=== PATIENT | male | born 1990 | race African-American/Black ===

== ENCOUNTER 2017-08-25 09:14 | Inpatient (IN) | payer OTHER ==
[~2017-08-25] VITALS: Ht 193 cm; Wt 137.7 kg
[2017-08-25] MEDS ORDERED: ARIP2 PO (09:55)
[2017-08-25 10:14] LABS: HEMATOCRIT 45.8 % (41-53); HEMOGLOBIN 16.1 g/dL (13.5-17.5); MEAN CORPUSCULAR HEMOGLOBIN 31.3 pg (26.0-34.0); MEAN CORPUSCULAR HGB CONC 35.2 G/dL (31.0-37.0); MEAN CORPUSCULAR VOLUME 89 fL (80-100); PLATELET COUNT (AUTO) 188 K/uL (150-450); RED BLOOD CELL COUNT(AUTO) 5.15 MIL/uL (4.50-5.90); RED CELL DISTRIBUTION WIDTH 13.9 % (11.5-14.5)
[2017-08-25 10:16] LABS: BAND NEUTROPHILS % (MANUAL) 0 % (0-5)
[2017-08-25 10:24] LABS: ANION GAP 10 mmol/L (8-16); CALCIUM, TOTAL 8.9 mg/dL (8.8-10.5); CARBON DIOXIDE 28 mmol/L (22-29); CHLORIDE 101 mmol/L (98-107); GLOMERULAR FILTR. RATE CALC > 60 mL/min (>60); GLUCOSE,RANDOM 122 mg/dL (70-110); POTASSIUM 3.3 mmol/L (3.5-5.1); SODIUM SERUM 139 mmol/L (136-145); UREA NITROGEN, BLOOD 18 mg/dL (7-18)
[2017-08-25 10:31] LABS: ALANINE AMINOTRANSFERASE 676 U/L (12-78); ALBUMIN 3.9 g/dL (3.4-5.0); ALKALINE PHOSPHATASE 103 U/L (46-116); ASPARTATE AMINOTRANSFERASE 438 U/L (15-37); BILIRUBIN,TOTAL 2.7 mg/dL (0.1-1.0); TOTAL PROTEIN, SERUM 7.7 g/dL (6.4-8.2)
[2017-08-25 10:38] LABS: SALICYLATE < 2.8 mg/dL (2.8-20.0)
[2017-08-25 10:47] LABS: ACETAMINOPHEN 105 mcg/mL (10-30)
[2017-08-25] MEDS ORDERED: ACETYLCYSTEINE 20% 200 MG/ML 30 ML ORAL SOLUTION PO ONE (11:00)
[2017-08-25] MEDS ORDERED: SODIUM CHLORIDE 0.9% 1,000 ML IV ONE (11:00)
[2017-08-25 11:17] LABS: INR 1.3 (0.9-1.1); PROTHROMBIN TIME 13.4 SEC (9.4-11.6)
[2017-08-25 11:21] LABS: SALICYLATE < 2.0 mg/dL (2.8-20.0)
[2017-08-25 11:26] LABS: ACETAMINOPHEN 104 mcg/mL (10-30)
[2017-08-25] MEDS ORDERED: POTASSIUM CHLORIDE 20 MEQ ER TABLET PO ONE (11:30)
[2017-08-25] MEDS ORDERED: ONDANSETRON HCL 4 MG/2 ML VIAL IVP ONE (11:30)
[2017-08-25 11:32] LABS: AMPHET/METH SCREEN,URINE POSITIVE (NEGATIVE); BARBITURATE SCREEN, URINE NEGATIVE (NEGATIVE); BENZODIAZEPINES SCREEN,URINE NEGATIVE (NEGATIVE); CANNABINOID SCREEN,URINE POSITIVE (NEGATIVE); COCAINE SCREEN,URINE NEGATIVE (NEGATIVE); METHADONE SCREEN, URINE NEGATIVE (NEGATIVE); OPIATE SCREEN,URINE NEGATIVE (NEGATIVE)
[2017-08-25 11:34] LABS: LYMPHOCYTES % (MANUAL) 13 % (22-44); MONOCYTES % (MANUAL) 2 % (2-9); SEGMENTED NEUTROPHILS % 85 % (40-70)
[2017-08-25 11:37] LABS: PHENCYCLIDINE SCREEN,URINE NEGATIVE (NEGATIVE)
[2017-08-25] MEDS ORDERED: MAGNESIUM HYDROXIDE SUSPENSION 30 ML UDCUP PO PRN (12:15)
[2017-08-25] MEDS ORDERED: 0.9% SODIUM CHLORIDE 10 ML SYRINGE IVP PRN (12:30)
[2017-08-25] MEDS ORDERED: ONDANSETRON HCL 4 MG/2 ML VIAL IVP PRN (12:30)
[2017-08-25] MEDS ORDERED: ACETAMINOPHEN 325 MG TABLET PO PRN (12:30)
[2017-08-25 14:22] VITALS: BP 140/66
[2017-08-25 14:44] VITALS: BP 140/66
[2017-08-25 20:04] VITALS: BP 137/58
[2017-08-25] MEDS: DOCUSATE SODIUM 100 MG CAPSULE PO SCH (21:00)
[2017-08-26] VITALS (8 sets, daily range): BP systolic 110–139; BP diastolic 45–72
[2017-08-26] MEDS: DOCUSATE SODIUM 100 MG CAPSULE PO SCH ×2 (09:00→20:12)
[2017-08-26] MEDS ORDERED: PANTOPRAZOLE SODIUM 40 MG DR TABLET PO SCH (09:00)
[2017-08-26 09:11] LABS: INR 1.8 (0.9-1.1); PROTHROMBIN TIME 18.8 SEC (9.4-11.6)
[2017-08-26 09:56] LABS: ALKALINE PHOSPHATASE 107 U/L (46-116); ANION GAP 9 mmol/L (8-16); BILIRUBIN,TOTAL 1.9 mg/dL (0.1-1.0); CARBON DIOXIDE 25 mmol/L (22-29); CHLORIDE 103 mmol/L (98-107); CREATININE 1.08 mg/dL (0.60-1.30); GLOMERULAR FILTR. RATE CALC > 60 mL/min (>60); GLUCOSE,RANDOM 123 mg/dL (70-110); POTASSIUM 3.4 mmol/L (3.5-5.1); SODIUM SERUM 137 mmol/L (136-145); TOTAL PROTEIN, SERUM 6.4 g/dL (6.4-8.2); UREA NITROGEN, BLOOD 15 mg/dL (7-18)
[2017-08-26] MEDS ORDERED: DEXTROSE 5% IV ONE ×3 (10:30→15:30)
[2017-08-26] MEDS ORDERED: POTASSIUM CHL 10 MEQ/WATER 50 ML IV PRN (10:30)
[2017-08-26] MEDS ORDERED: ACETYLCYSTEINE IV ONE ×3 (10:30→15:30)
[2017-08-26] MEDS ORDERED: WATER IV ONE ×3 (10:30→15:30)
[2017-08-26] MEDS: PANTOPRAZOLE SODIUM 40 MG/VIAL IVP SCH (10:38)
[2017-08-26 10:53] LABS: ALANINE AMINOTRANSFERASE 12061 U/L (12-78); ASPARTATE AMINOTRANSFERASE 8847 U/L (15-37)
[2017-08-26] MEDS: ONDANSETRON HCL 4 MG/2 ML VIAL IVP PRN ×2 (11:33→14:47)
[2017-08-26] MEDS ORDERED: SODIUM CHLORIDE 0.9% 250 ML IV ONE ×2 (11:50→14:44)
[2017-08-26] MEDS ORDERED: LACTULOSE 20 GM/30 ML SOLUTION UDCUP PO PRN (12:45)
[2017-08-26] MEDS: POTASSIUM CHLORIDE 20 MEQ ER TABLET PO PRN (14:51)
[2017-08-26 17:40] LABS: ANION GAP 7 mmol/L (8-16); CALCIUM, TOTAL 8.1 mg/dL (8.8-10.5); CARBON DIOXIDE 28 mmol/L (22-29); CHLORIDE 102 mmol/L (98-107); CREATININE 1.12 mg/dL (0.60-1.30); GLOMERULAR FILTR. RATE CALC > 60 mL/min (>60); GLUCOSE,RANDOM 139 mg/dL (70-110); POTASSIUM 3.6 mmol/L (3.5-5.1); SODIUM SERUM 137 mmol/L (136-145); UREA NITROGEN, BLOOD 13 mg/dL (7-18)
[2017-08-26 17:42] LABS: INR 1.7 (0.9-1.1); PROTHROMBIN TIME 17.5 SEC (9.4-11.6)
[2017-08-26 17:51] LABS: ACETAMINOPHEN 10 mcg/mL (10-30); ALBUMIN 2.9 g/dL (3.4-5.0); ALKALINE PHOSPHATASE 102 U/L (46-116); BILIRUBIN,TOTAL 1.7 mg/dL (0.1-1.0); PHOSPHORUS 1.7 mg/dL (2.5-4.9); TOTAL PROTEIN, SERUM 6.4 g/dL (6.4-8.2)
[2017-08-26 18:09] LABS: ASPARTATE AMINOTRANSFERASE 7552 U/L (15-37)
[2017-08-26 18:32] LABS: ALANINE AMINOTRANSFERASE 12234 U/L (12-78)
[2017-08-26] MEDS: POTASSIUM PHOS/SODIUM PHOS MIXTURE 1 POWDER PACKET PO SCH (20:12)
[2017-08-27] VITALS (7 sets, daily range): BP systolic 108–132; BP diastolic 47–73
[2017-08-27 05:38] LABS: BASOPHILS % (AUTO) 0.3 % (0.0-2.0); EOSINOPHILS % (AUTO) 0.5 % (1.0-6.0); HEMATOCRIT 39.6 % (41-53); LYMPHOCYTES # (AUTO) 1.3 K/uL (1.0-4.8); LYMPHOCYTES % (AUTO) 20.4 % (22.0-44.0); MEAN CORPUSCULAR HEMOGLOBIN 30.5 pg (26.0-34.0); MEAN CORPUSCULAR HGB CONC 35.3 G/dL (31.0-37.0); MEAN CORPUSCULAR VOLUME 87 fL (80-100); MONOCYTES # (AUTO) 0.3 K/uL (0.1-1.0); MONOCYTES % (AUTO) 4.3 % (2.0-9.0); NEUTROPHILS # (AUTO) 4.8 K/uL (1.8-7.7); NEUTROPHILS % (AUTO) 74.5 % (40.0-70.0); PLATELET COUNT (AUTO) 114 K/uL (150-450); RED BLOOD CELL COUNT(AUTO) 4.57 MIL/uL (4.50-5.90); RED CELL DISTRIBUTION WIDTH 13.5 % (11.5-14.5)
[2017-08-27 05:48] LABS: INR 1.6 (0.9-1.1); PROTHROMBIN TIME 16.1 SEC (9.4-11.6)
[2017-08-27 06:06] LABS: ALBUMIN 2.8 g/dL (3.4-5.0); ALKALINE PHOSPHATASE 102 U/L (46-116); ANION GAP 7 mmol/L (8-16); BILIRUBIN,TOTAL 1.5 mg/dL (0.1-1.0); CARBON DIOXIDE 28 mmol/L (22-29); CHLORIDE 102 mmol/L (98-107); CREATININE 1.04 mg/dL (0.60-1.30); GLOMERULAR FILTR. RATE CALC > 60 mL/min (>60); GLUCOSE,RANDOM 106 mg/dL (70-110); PHOSPHORUS 1.9 mg/dL (2.5-4.9); POTASSIUM 3.1 mmol/L (3.5-5.1); SODIUM SERUM 137 mmol/L (136-145); UREA NITROGEN, BLOOD 10 mg/dL (7-18)
[2017-08-27 06:53] LABS: ALANINE AMINOTRANSFERASE 9078 U/L (12-78); ASPARTATE AMINOTRANSFERASE 3726 U/L (15-37)
[2017-08-27] MEDS ORDERED: RAPID SEQUENCE KIT [RSI] 1 EACH KIT ONE (08:49)
[2017-08-27] MEDS: POTASSIUM CHLORIDE 20 MEQ ER TABLET PO PRN ×2 (09:01→14:03)
[2017-08-27] MEDS: DOCUSATE SODIUM 100 MG CAPSULE PO SCH ×2 (09:01→21:22)
[2017-08-27] MEDS: POTASSIUM PHOS/SODIUM PHOS MIXTURE 1 POWDER PACKET PO SCH ×2 (09:03→21:22)
[2017-08-27] MEDS: PANTOPRAZOLE SODIUM 40 MG/VIAL IVP SCH (09:05)
[2017-08-27] MEDS ORDERED: ACETYLCYSTEINE IV ONE (11:00)
[2017-08-27] MEDS ORDERED: DEXTROSE 5% IV ONE (11:00)
[2017-08-27] MEDS ORDERED: WATER IV ONE (11:00)
[2017-08-28 00:13] VITALS: BP 111/50
[2017-08-28 03:13] LABS: ALBUMIN 2.6 g/dL (3.4-5.0); BILIRUBIN,TOTAL 0.9 mg/dL (0.1-1.0); TOTAL PROTEIN, SERUM 5.8 g/dL (6.4-8.2)
[2017-08-28 03:16] LABS: BILIRUBIN,DIRECT 0.4 mg/dL (0.00-0.20)
[2017-08-28] MEDS ORDERED: DEXTROSE 5% IV ONE (04:30)
[2017-08-28] MEDS ORDERED: WATER IV ONE (04:30)
[2017-08-28] MEDS ORDERED: ACETYLCYSTEINE IV ONE (04:30)
[2017-08-28 04:49] VITALS: BP 131/73
[2017-08-28 06:48] LABS: ALBUMIN 2.6 g/dL (3.4-5.0); ALKALINE PHOSPHATASE 94 U/L (46-116); ANION GAP 6 mmol/L (8-16); ASPARTATE AMINOTRANSFERASE 820 U/L (15-37); BILIRUBIN,TOTAL 0.9 mg/dL (0.1-1.0); CALCIUM, TOTAL 7.9 mg/dL (8.8-10.5); CARBON DIOXIDE 28 mmol/L (22-29); CHLORIDE 104 mmol/L (98-107); CREATININE 1.25 mg/dL (0.60-1.30); GLOMERULAR FILTR. RATE CALC > 60 mL/min (>60); GLUCOSE,RANDOM 119 mg/dL (70-110); PHOSPHORUS 1.9 mg/dL (2.5-4.9); POTASSIUM 3.6 mmol/L (3.5-5.1); SODIUM SERUM 138 mmol/L (136-145); TOTAL PROTEIN, SERUM 5.8 g/dL (6.4-8.2); UREA NITROGEN, BLOOD 14 mg/dL (7-18)
[2017-08-28 06:56] LABS: INR 1.2 (0.9-1.1); PROTHROMBIN TIME 12.7 SEC (9.4-11.6)
[2017-08-28 07:25] VITALS: BP 119/65
[2017-08-28 07:51] LABS: ALANINE AMINOTRANSFERASE 5642 U/L (12-78)
[2017-08-28] MEDS: DOCUSATE SODIUM 100 MG CAPSULE PO SCH ×2 (08:30→20:59)
[2017-08-28] MEDS: POTASSIUM PHOS/SODIUM PHOS MIXTURE 1 POWDER PACKET PO SCH ×2 (08:30→21:20)
[2017-08-28] MEDS: PANTOPRAZOLE SODIUM 40 MG/VIAL IVP SCH (08:30)
[2017-08-28 11:47] VITALS: BP 116/59
[2017-08-28 15:33] VITALS: BP 118/73
[2017-08-28 19:51] VITALS: BP 139/88
[2017-08-28 21:12] LABS: ALBUMIN 2.7 g/dL (3.4-5.0); BILIRUBIN,TOTAL 0.5 mg/dL (0.1-1.0)
[2017-08-28 21:13] LABS: BILIRUBIN,DIRECT 0.3 mg/dL (0.00-0.20)
[2017-08-29] VITALS: BP 137/77
[2017-08-29 06:47] LABS: ALANINE AMINOTRANSFERASE 3192 U/L (12-78); ALBUMIN 2.7 g/dL (3.4-5.0); ALKALINE PHOSPHATASE 97 U/L (46-116); ANION GAP 7 mmol/L (8-16); ASPARTATE AMINOTRANSFERASE 235 U/L (15-37); BILIRUBIN,TOTAL 0.5 mg/dL (0.1-1.0); CALCIUM, TOTAL 7.8 mg/dL (8.8-10.5); CARBON DIOXIDE 28 mmol/L (22-29); CHLORIDE 105 mmol/L (98-107); CREATININE 1.35 mg/dL (0.60-1.30); GLOMERULAR FILTR. RATE CALC > 60 mL/min (>60); GLUCOSE,RANDOM 87 mg/dL (70-110); POTASSIUM 3.9 mmol/L (3.5-5.1); SODIUM SERUM 140 mmol/L (136-145); TOTAL PROTEIN, SERUM 5.9 g/dL (6.4-8.2); UREA NITROGEN, BLOOD 15 mg/dL (7-18)
[2017-08-29] MEDS ORDERED: SODIUM CHLORIDE 0.9% 500 ML IV ONE (07:35)
[2017-08-29 07:56] VITALS: BP 130/76
[2017-08-29] MEDS: PANTOPRAZOLE SODIUM 40 MG/VIAL IVP SCH (09:20)
[2017-08-29] MEDS: POTASSIUM PHOS/SODIUM PHOS MIXTURE 1 POWDER PACKET PO SCH ×2 (09:20→20:34)
[2017-08-29] MEDS: DOCUSATE SODIUM 100 MG CAPSULE PO SCH ×2 (09:20→20:34)
[2017-08-29 11:44] VITALS: BP_SYST 130; BP_SYST 139; BP_DIAS 70; BP_DIAS 75
[2017-08-29 17:01] VITALS: BP 157/86
[2017-08-29 20:00] VITALS: BP 128/73
[2017-08-29 23:25] VITALS: BP 127/59
[2017-08-30 05:10] VITALS: BP 118/69
[2017-08-30 07:55] LABS: ALANINE AMINOTRANSFERASE 2119 U/L (12-78); ALBUMIN 2.8 g/dL (3.4-5.0); ALKALINE PHOSPHATASE 85 U/L (46-116); ANION GAP 6 mmol/L (8-16); ASPARTATE AMINOTRANSFERASE 97 U/L (15-37); BILIRUBIN,TOTAL 0.6 mg/dL (0.1-1.0); CALCIUM, TOTAL 8.1 mg/dL (8.8-10.5); CARBON DIOXIDE 30 mmol/L (22-29); CHLORIDE 103 mmol/L (98-107); CREATININE 1.51 mg/dL (0.60-1.30); GLOMERULAR FILTR. RATE CALC > 60 mL/min (>60); GLUCOSE,RANDOM 88 mg/dL (70-110); POTASSIUM 4.1 mmol/L (3.5-5.1); SODIUM SERUM 139 mmol/L (136-145); TOTAL PROTEIN, SERUM 6.1 g/dL (6.4-8.2); UREA NITROGEN, BLOOD 19 mg/dL (7-18)
[2017-08-30] MEDS ORDERED: SODIUM CHLORIDE 0.9% 1,000 ML IV ONE (08:45)
[2017-08-30 08:46] VITALS: BP 135/82
[2017-08-30] MEDS: DOCUSATE SODIUM 100 MG CAPSULE PO SCH ×2 (09:21→22:18)
[2017-08-30] MEDS: ONDANSETRON HCL 4 MG/2 ML VIAL IVP PRN ×2 (09:21→15:59)
[2017-08-30 11:53] VITALS: BP 132/70
[2017-08-30 19:30] VITALS: BP 128/74
[2017-08-30] MEDS ORDERED: MIRTAZAPINE 15 MG TABLET PO SCH (21:00)
[2017-08-30] MEDS: SERTRALINE HCL 50 MG TABLET PO SCH (22:18)
[2017-08-30 23:15] VITALS: BP 132/76
[2017-08-31 04:00] VITALS: BP 136/74
[2017-08-31 06:59] LABS: ALANINE AMINOTRANSFERASE 1521 U/L (12-78); ALBUMIN 2.9 g/dL (3.4-5.0); ALKALINE PHOSPHATASE 89 U/L (46-116); ANION GAP 5 mmol/L (8-16); ASPARTATE AMINOTRANSFERASE 55 U/L (15-37); BILIRUBIN,TOTAL 0.5 mg/dL (0.1-1.0); CALCIUM, TOTAL 8.3 mg/dL (8.8-10.5); CARBON DIOXIDE 31 mmol/L (22-29); CHLORIDE 104 mmol/L (98-107); GLOMERULAR FILTR. RATE CALC > 60 mL/min (>60); GLUCOSE,RANDOM 98 mg/dL (70-110); POTASSIUM 4.2 mmol/L (3.5-5.1); SODIUM SERUM 140 mmol/L (136-145); TOTAL PROTEIN, SERUM 6.4 g/dL (6.4-8.2); UREA NITROGEN, BLOOD 19 mg/dL (7-18)
[2017-08-31 07:38] VITALS: BP 123/75
[2017-08-31] MEDS: ONDANSETRON HCL 4 MG/2 ML VIAL IVP PRN (08:30)
[2017-08-31] MEDS: ARIPiprazole 5 MG TABLET PO SCH (08:48)
[2017-08-31] MEDS: DOCUSATE SODIUM 100 MG CAPSULE PO SCH ×2 (08:48→19:53)
[2017-08-31] MEDS ORDERED: SODIUM CHLORIDE 0.9% 1,000 ML IV ONE (10:15)
[2017-08-31 11:44] VITALS: BP 136/75
[2017-08-31 15:47] VITALS: BP 127/62
[2017-08-31 19:46] VITALS: BP 120/55
[2017-08-31] MEDS: SERTRALINE HCL 50 MG TABLET PO SCH (23:42)
[2017-08-31 23:45] VITALS: BP 128/59
[2017-09-01 04:45] VITALS: BP 121/63
[2017-09-01 06:30] LABS: ALANINE AMINOTRANSFERASE 1171 U/L (12-78); ALBUMIN 3.1 g/dL (3.4-5.0); ALKALINE PHOSPHATASE 91 U/L (46-116); ANION GAP 5 mmol/L (8-16); ASPARTATE AMINOTRANSFERASE 38 U/L (15-37); BILIRUBIN,TOTAL 0.5 mg/dL (0.1-1.0); CALCIUM, TOTAL 8.5 mg/dL (8.8-10.5); CARBON DIOXIDE 32 mmol/L (22-29); CHLORIDE 104 mmol/L (98-107); CREATININE 1.41 mg/dL (0.60-1.30); GLOMERULAR FILTR. RATE CALC > 60 mL/min (>60); GLUCOSE,RANDOM 88 mg/dL (70-110); POTASSIUM 4.2 mmol/L (3.5-5.1); SODIUM SERUM 141 mmol/L (136-145); TOTAL PROTEIN, SERUM 6.8 g/dL (6.4-8.2); UREA NITROGEN, BLOOD 14 mg/dL (7-18)
[2017-09-01] MEDS ORDERED: SODIUM CHLORIDE 0.9% 1,000 ML IV ONE (08:15)
[2017-09-01 08:37] VITALS: BP 126/66
[2017-09-01] MEDS: DOCUSATE SODIUM 100 MG CAPSULE PO SCH ×2 (09:00→10:26)
[2017-09-01] MEDS: ONDANSETRON HCL 4 MG/2 ML VIAL IVP PRN (10:21)
[2017-09-01] MEDS: ARIPiprazole 5 MG TABLET PO SCH (10:26)
[2017-09-01 11:58] VITALS: BP 128/72
[2017-09-01] MEDS ORDERED: LACT10SO9 PO (14:27)
[2017-09-01] MEDS ORDERED: MOM30 PO (14:27)
[2017-09-01] MEDS ORDERED: ARIP5TAB8 PO (14:27)
[2017-09-01] MEDS ORDERED: ONDA4 PO (14:27)
[2017-09-01] MEDS ORDERED: DSS100 PO (14:27)
[2017-09-01] MEDS ORDERED: SERT50TA12 PO (14:27)
[2017-09-01 16:40] VITALS: BP 132/80
== END 2017-09-01 16:50 | disposition home or self-care (01) | DRG 812 ==
LOC: EMS 09:19 → 5S 13:10 → ICU 08-26 13:49 → 5S 08-27 10:40 → 6N 08-28 18:45
PROVIDERS: ADMIT Internal Medicine; ATTEND Internal Medicine
DX: T39.1X2A Poisoning by 4-Aminophenol derivatives, intentional self-harm, initial encounter (principal); K72.00 Acute and subacute hepatic failure without coma; N17.9 Acute kidney failure, unspecified; E44.0 Moderate protein-calorie malnutrition; D68.9 Coagulation defect, unspecified; F41.9 Anxiety disorder, unspecified; F32.9 Major depressive disorder, single episode, unspecified; D69.6 Thrombocytopenia, unspecified; F60.3 Borderline personality disorder; F25.0 Schizoaffective disorder, bipolar type; F19.90 Other psychoactive substance use, unspecified, uncomplicated; F15.10 Other stimulant abuse, uncomplicated; E66.9 Obesity, unspecified; F12.10 Cannabis abuse, uncomplicated; F17.210 Nicotine dependence, cigarettes, uncomplicated; Z91.19 Patient's noncompliance with other medical treatment and regimen; Z79.899 Other long term (current) drug therapy; Z59.0 Homelessness; Z91.5 Personal history of self-harm; Z81.8 Family history of other mental and behavioral disorders; Z68.37 Body mass index [BMI] 37.0-37.9, adult
CPT/HCPCS: 82248; 84100; 84132; 87081; 93005; 99285; C9113; G0480; G0481; J0132; J2405; J3480; J7030; J7040; J7050; J7060

== ENCOUNTER 2017-09-01 17:00 | Inpatient (IN) | payer MEDICAID, OTHER ==
[~2017-09-01] VITALS: Ht 193 cm; Wt 130.9 kg
[~2017-09-01 17:00] MED LIST: ARIP2 PO; ARIP5TAB8 PO; DSS100 PO; LACT10SO9 PO; MOM30 PO; ONDA4 PO; SERT50TA12 PO
[2017-09-01] MEDS ORDERED: LORazepam 2 MG TABLET PO PRN (17:15)
[2017-09-01] MEDS ORDERED: HALOPERIDOL 5 MG TABLET PO PRN (17:15)
[2017-09-01] MEDS ORDERED: ZOLPIDEM TARTRATE 10 MG TABLET PO PRN (17:15)
[2017-09-01 17:34] VITALS: BP 127/71
[2017-09-01] MEDS ORDERED: MAGNESIUM HYDROXIDE SUSPENSION 30 ML UDCUP PO PRN (18:45)
[2017-09-01] MEDS ORDERED: CloNIDine HCL 0.1 MG TABLET PO PRN (18:45)
[2017-09-01] MEDS ORDERED: ONDANSETRON HCL 4 MG TABLET PO PRN (18:45)
[2017-09-01] MEDS ORDERED: BACITRACIN 28.4 GM OINTMENT TP PRN (18:45)
[2017-09-01] MEDS ORDERED: MAG HYDROX/AL HYDROX/SIMETH ES 30 ML SUSPENSION UDCUP PO PRN (18:45)
[2017-09-01] MEDS ORDERED: ALBUTEROL SULFATE HFA 90 MCG/PUFF 8 GM INHALER IH PRN (18:45)
[2017-09-01] MEDS ORDERED: LOPERAMIDE HCL 2 MG CAPSULE PO PRN (18:45)
[2017-09-01] MEDS ORDERED: BENZOCAINE/MENTHOL LOZENGE MM PRN (18:45)
[2017-09-01] MEDS ORDERED: PETROLATUM,WHITE 71 GM JELLY TP PRN (18:45)
[2017-09-01] MEDS: SERTRALINE HCL 50 MG TABLET PO SCH (20:03)
[2017-09-02 06:18] LABS: BASOPHILS % (AUTO) 0.5 % (0.0-2.0); HEMATOCRIT 37.6 % (41-53); HEMOGLOBIN 13.1 g/dL (13.5-17.5); LYMPHOCYTES # (AUTO) 1.9 K/uL (1.0-4.8); MEAN CORPUSCULAR HEMOGLOBIN 31.1 pg (26.0-34.0); MEAN CORPUSCULAR HGB CONC 34.9 G/dL (31.0-37.0); MEAN CORPUSCULAR VOLUME 89 fL (80-100); MONOCYTES # (AUTO) 0.7 K/uL (0.1-1.0); MONOCYTES % (AUTO) 10.2 % (2.0-9.0); NEUTROPHILS # (AUTO) 3.9 K/uL (1.8-7.7); NEUTROPHILS % (AUTO) 59.3 % (40.0-70.0); PLATELET COUNT (AUTO) 190 K/uL (150-450); RED BLOOD CELL COUNT(AUTO) 4.21 MIL/uL (4.50-5.90); RED CELL DISTRIBUTION WIDTH 13.4 % (11.5-14.5)
[2017-09-02 06:31] LABS: ALANINE AMINOTRANSFERASE 847 U/L (12-78); ALBUMIN 3.1 g/dL (3.4-5.0); ALKALINE PHOSPHATASE 88 U/L (46-116); ANION GAP 4 mmol/L (8-16); ASPARTATE AMINOTRANSFERASE 31 U/L (15-37); BILIRUBIN,TOTAL 0.5 mg/dL (0.1-1.0); CALCIUM, TOTAL 8.5 mg/dL (8.8-10.5); CARBON DIOXIDE 33 mmol/L (22-29); CHLORIDE 104 mmol/L (98-107); CREATININE 1.42 mg/dL (0.60-1.30); GLOMERULAR FILTR. RATE CALC > 60 mL/min (>60); GLUCOSE,RANDOM 88 mg/dL (70-110); POTASSIUM 4.2 mmol/L (3.5-5.1); SODIUM SERUM 141 mmol/L (136-145); UREA NITROGEN, BLOOD 13 mg/dL (7-18)
[2017-09-02 07:06] LABS: ACETAMINOPHEN < 2 mcg/mL (10-30)
[2017-09-02 09:26] VITALS: BP 132/82
[2017-09-02] MEDS: ARIPiprazole 5 MG TABLET PO SCH (09:50)
[2017-09-02 16:53] VITALS: BP 126/57
[2017-09-02] MEDS: SERTRALINE HCL 50 MG TABLET PO SCH (20:12)
[2017-09-03 07:01] LABS: ALANINE AMINOTRANSFERASE 681 U/L (12-78); ALBUMIN 3.4 g/dL (3.4-5.0); ALKALINE PHOSPHATASE 93 U/L (46-116); ANION GAP 7 mmol/L (8-16); ASPARTATE AMINOTRANSFERASE 28 U/L (15-37); BILIRUBIN,TOTAL 0.5 mg/dL (0.1-1.0); CALCIUM, TOTAL 8.6 mg/dL (8.8-10.5); CARBON DIOXIDE 30 mmol/L (22-29); CHLORIDE 103 mmol/L (98-107); CHOL/HDL RATIO 3.7 (4.2-7.3); CHOLESTEROL 173 mg/dL (131-200); GLOMERULAR FILTR. RATE CALC > 60 mL/min (>60); GLUCOSE,RANDOM 82 mg/dL (70-110); HDL CHOLESTEROL 47 mg/dL (40-60); LDL CHOL (CALC.) 112 mg/dL (0-130); POTASSIUM 4.1 mmol/L (3.5-5.1); SODIUM SERUM 140 mmol/L (136-145); THYROID STIMULATING HORMONE 1.06 uIU/mL (0.36-3.74); TOTAL PROTEIN, SERUM 7.3 g/dL (6.4-8.2); TRIGLYCERIDES 72 mg/dL (15-150); UREA NITROGEN, BLOOD 13 mg/dL (7-18)
[2017-09-03 09:09] VITALS: BP_SYST 123
[2017-09-03] MEDS: ARIPiprazole 5 MG TABLET PO SCH (09:11)
[2017-09-03] MEDS: SERTRALINE HCL 50 MG TABLET PO SCH (20:01)
[2017-09-03 20:24] VITALS: BP 124/76
[2017-09-04 06:41] LABS: BAND NEUTROPHILS % (MANUAL) 0 % (0-5)
[2017-09-04 06:57] LABS: HEMATOCRIT 39.8 % (41-53); MEAN CORPUSCULAR HEMOGLOBIN 31.2 pg (26.0-34.0); MEAN CORPUSCULAR HGB CONC 35.2 G/dL (31.0-37.0); MEAN CORPUSCULAR VOLUME 89 fL (80-100); PLATELET COUNT (AUTO) 225 K/uL (150-450); RED CELL DISTRIBUTION WIDTH 13.8 % (11.5-14.5)
[2017-09-04 07:04] LABS: ANION GAP 7 mmol/L (8-16); CALCIUM, TOTAL 8.9 mg/dL (8.8-10.5); CARBON DIOXIDE 30 mmol/L (22-29); CHLORIDE 105 mmol/L (98-107); CREATININE 1.22 mg/dL (0.60-1.30); GLOMERULAR FILTR. RATE CALC > 60 mL/min (>60); GLUCOSE,RANDOM 82 mg/dL (70-110); PHOSPHORUS 4.2 mg/dL (2.5-4.9); POTASSIUM 4.3 mmol/L (3.5-5.1); SODIUM SERUM 142 mmol/L (136-145); UREA NITROGEN, BLOOD 16 mg/dL (7-18)
[2017-09-04] MEDS: CHOLECALCIFEROL (VIT D3) 1,000 UNITS TABLET PO SCH (08:57)
[2017-09-04] MEDS: ARIPiprazole 5 MG TABLET PO SCH (08:57)
[2017-09-04 09:51] VITALS: BP 113/74
[2017-09-04 10:11] LABS: LYMPHOCYTES % (MANUAL) 49 % (22-44); MONOCYTES % (MANUAL) 7 % (2-9); SEGMENTED NEUTROPHILS % 44 % (40-70)
[2017-09-04] MEDS: SERTRALINE HCL 50 MG TABLET PO SCH (20:44)
[2017-09-04 21:08] VITALS: BP 118/78
[2017-09-05] MEDS: CHOLECALCIFEROL (VIT D3) 1,000 UNITS TABLET PO SCH (08:43)
[2017-09-05] MEDS: ARIPiprazole 5 MG TABLET PO SCH (08:43)
[2017-09-05 10:17] VITALS: BP 106/56
[2017-09-05 16:59] VITALS: BP 113/63
[2017-09-05] MEDS: SERTRALINE HCL 50 MG TABLET PO SCH (20:19)
[2017-09-06] MEDS: CHOLECALCIFEROL (VIT D3) 1,000 UNITS TABLET PO SCH (08:48)
[2017-09-06] MEDS: ARIPiprazole 5 MG TABLET PO SCH (08:48)
[2017-09-06 09:51] VITALS: BP 99/52
[2017-09-06] MEDS ORDERED: VITAD1000 PO (12:15)
== END 2017-09-06 13:46 | disposition home or self-care (01) | DRG 753 ==
LOC: 3EI 17:00
PROVIDERS: ADMIT Psychiatry & Neurology Psychiatry; ATTEND Psychiatry & Neurology Psychiatry
DX: F31.31 Bipolar disorder, current episode depressed, mild (principal); F25.0 Schizoaffective disorder, bipolar type; R45.851 Suicidal ideations; R00.1 Bradycardia, unspecified; F60.3 Borderline personality disorder; F12.10 Cannabis abuse, uncomplicated; F17.200 Nicotine dependence, unspecified, uncomplicated; F15.10 Other stimulant abuse, uncomplicated; G47.00 Insomnia, unspecified; F41.9 Anxiety disorder, unspecified; E66.9 Obesity, unspecified; R45.87 Impulsiveness; Z59.0 Homelessness; Z56.0 Unemployment, unspecified; Z79.899 Other long term (current) drug therapy; Z91.19 Patient's noncompliance with other medical treatment and regimen; Z91.5 Personal history of self-harm; Z81.8 Family history of other mental and behavioral disorders; Z71.6 Tobacco abuse counseling; Z71.51 Drug abuse counseling and surveillance of drug abuser; Z68.35 Body mass index [BMI] 35.0-35.9, adult
CPT/HCPCS: 80074; 82306; 83735; 84100; 84443; 85007; 87081; G0481